=== PATIENT | male | born 1965 | race African-American/Black ===

== ENCOUNTER 2022-08-05 18:56 | Emergency (ER) | payer BC, SELFPAY ==
[2022-08-05] MEDS ORDERED: Calcium Chloride 1 GM/10 ML Abboject SYRINGE ONE (19:01)
[2022-08-05] MEDS ORDERED: Sodium Bicarb 50 MEQ/50 ML Abboject 8.4% SYRINGE ONE (19:01)
[2022-08-05] MEDS ORDERED: EPINEPHrine 1 MG/10 ML Abboject SYRINGE ONE (19:01)
== END 2022-08-05 19:20 | disposition expired ==
LOC: EDBD 18:56 → ERS 18:56
DX: I46.9 Cardiac arrest, cause unspecified (principal)
CPT/HCPCS: 31500; 92950; J0171